=== PATIENT | female | born 1975 | race Caucasian/White ===

== ENCOUNTER 2021-02-25 17:21 | Emergency (ER) | payer BC, SELFPAY ==
[2021-02-25 17:45] VITALS: RESP 14; TEMP 37.2; O2SAT 99; BMI 47.2
--- NOTE | 2021-02-25 17:47 | HMH.EDUTC ---
[facility] [place] Disposition Clinical Impression: Otitis media Qualifiers: Otitis media type: suppurative Chronicity: acute Laterality: bilateral Recurrence: non-recurrent Spontaneous tympanic membrane rupture: without spontaneous rupture Qualified Code(s): H66.003 - Acute suppurative otitis media without spontaneous rupture of ear drum, bilateral Sinusitis Qualifiers: Sinusitis location: unspecified location Chronicity: acute Recurrence: non-recurrent Qualified Code(s): J01.90 - Acute sinusitis, unspecified Disposition: Home, Self-Care Condition on Discharge: Good Instructions: Middle Ear Infection, DI for Sinusitis Additional Instructions: Drink plenty of fluids. Take tylenol or ibuprofen for pain or fever. Take the medications as directed. Follow up with your regular doctor. GO TO THE ER FOR ANY WORSENING SYMPTOMS Don't start the oral steroids until tomorrow, since you had the shot here today. Prescriptions: Brompheniramine/Pseudoephed/Dm [Bromfed Dm Cough Syrup] 5 ml PO Q6HP PRN #240 syrup PRN Reason: Cough Transmission Status: Received by [id number] Amoxicillin/Potassium Clav [Augmentin 875-125 Tablet] 1 tab PO Q12H 10 Days #20 tab Transmission Status: Received by [id number] methylPREDNISolone [Medrol] 4 mg PO DIRECTED 6 Days #21 [email or web address] Transmission Status: Received by [id number] Referrals: PCP,No [Primary Care Provider] - Time of Disposition: 18:17 Medical Decision Making - Medical Records Medical records reviewed: No: I reviewed the patient's medical records. - Jose Francisco Inquiry Pt receiving controlled substance: No Vital Signs: 02/25/21 17:45 02/25/21 18:18 Temperature 98.9 F 98.9 F Temperature Source Oral Oral Pulse Rate 90 Respiratory Rate 14 16 Blood Pressure 138/85 02 Sat by Pulse Oximetry 99 Oxygen Delivery Method Room Air Room Air Orders (Tests/Meds): ED MEDICATIONS Discontinued Medications Generic Name Dose Route Start Last Admin Trade Name Freq PRN Reason Stop Dose Admin Ceftriaxone Sodium 1 gm 02/25/21 17:47 02/25/21 17:57 Ceftriaxone 1gm Vial IM 02/25/21 17:48 1 gm ONCE ONE Administration Protocol Lidocaine HCl 0 ml 02/25/21 17:47 02/25/21 17:57 Lidocaine 1% 5ml Pf Vial IM 02/25/21 17:48 5 ml ONCE ONE Administration Methylprednisolone Sodium Succinate 125 mg 02/25/21 17:47 02/25/21 17:57 Methylprednisolone Sod Succ 125mg Vial IM 02/25/21 17:48 125 mg ONCE ONE Administration [facility] [place] HPI - General Stated complaint: left ear pain/dizziness Time Seen by Provider: 02/25/21 17:48 - History of Present Illness Provider Complaint: She c/o bilateral ear pain. Her left is worse than her right. She also states that she has a sinus infection at this time. She denies any fever/chills/body aches. - Related Data Previous Rx's Medication Instructions Recorded Amoxicillin/Potassium Clav 1 tab PO Q12H 10 Days #20 tab 02/25/21 [Augmentin 875-125 Tablet] Brompheniramine/Pseudoephed/Dm 5 ml PO Q6HP PRN #240 syrup 02/25/21 [Bromfed Dm Cough Syrup] methylPREDNISolone [Medrol] 4 mg PO DIRECTED 6 Days #21 02/25/21 [email or web address] Allergies Allergy/AdvReac Type Severity Reaction Status Date / Time No Known Allergies Allergy Verified 02/25/21 17:[address] [facility] History - Hepatitis A Screen Attestation statement:: This patient has been screened for Hepatitis A risk factors. I have reviewed the patient's past medical history: Yes ROS Obtained: Yes All systems reviewed & no additional complaints - Constitutional Constitutional: Denies body ache, Denies chills, Denies fever(s), Reports poor appetite, Reports malaise - Eyes Eyes: Denies eye discharge - ENT Ears, Nose, Mouth, and Throat: Reports as per HPI - Cardiovascular Cardiovascular: Denies chest pain - Respiratory Respiratory: Reports chest congestion, Reports cough, Denies stridor, Denies wheezing Physical Exam
[2021-02-25 18:18] VITALS: BP 138/85; PULSE 90; RESP 16; TEMP 37.2; O2SAT 99
== END 2021-02-25 18:20 | disposition home or self-care (01) ==
PROVIDERS: Emergency Provider Nurse Practitioner Family
DX: H66.003 Acute suppurative otitis media without spontaneous rupture of ear drum, bilateral (principal); J01.90 Acute sinusitis, unspecified
CPT/HCPCS: 96372; 99202; G0463